=== PATIENT | female | born 1975 | race Hispanic/Latino ===

== ENCOUNTER 2020-10-04 09:35 | Inpatient (IN) | payer OTHER, SELFPAY ==
[~2020-10-04] VITALS: Ht 154.9 cm; Wt 79.3 kg
[2020-10-04 11:07] LABS: BASOPHILS % (AUTO) 0.2 % (0.0-5.0); EOSINOPHILS % (AUTO) 0.1 % (0.0-8.0); HEMATOCRIT 40.2 % (36-48); LYMPHOCYTES % (AUTO) 6.4 % (21.0-51.0); MEAN CORPUSCULAR HEMOGLOBIN 26.1 pg (27.0-33.0); MEAN CORPUSCULAR HGB CONC 31.6 g/dL (32.0-36.0); MEAN CORPUSCULAR VOLUME 82.5 fL (79-99); NEUTROPHILS % (AUTO) 87.9 % (40.0-77.0); PLATELET COUNT (AUTO) 252 K/uL (130-400); RED BLOOD CELL COUNT(AUTO) 4.87 MIL/uL (4.00-5.50); RED CELL DISTRIBUTION WIDTH 14.8 % (11.0-15.5); WHITE BLOOD COUNT (AUTO) 12.3 K/uL (4.8-10.8)
[2020-10-04 11:12] LABS: CREATININE 0.6 mg/dL (0.5-1.5); POTASSIUM 4.1 mmol/L (3.5-5.1)
[2020-10-04 11:15] LABS: APPEARANCE,URINE Clear (CLEAR); BILIRUBIN,URINE Negative (NEGATIVE); COLOR,URINE Yellow (YELLOW); GLUCOSE, URINE (UA) >=1000 mg/dL (NEGATIVE); KETONES,URINE >=160 mg/dL (NEGATIVE); LEUKOCYTE ESTERASE ,URINE Negative (NEGATIVE); NITRATE,URINE Negative (NEGATIVE); OCCULT BLOOD,URINE Nonhemolyzed Trace (NEGATIVE); PH,URINE 6.5 (5.0-8.0); PROTEIN,URINE Trace mg/dL (NEGATIVE)
[2020-10-04 11:17] LABS: ALBUMIN 2.9 g/dL (3.5-5.0); BILIRUBIN,TOTAL 0.5 mg/dL (0.2-1.0); TOTAL PROTEIN, SERUM 7.5 g/dL (6.0-8.3)
[2020-10-04 11:21] LABS: HCG,QUAL RESULT NEGATIVE (NEGATIVE)
[2020-10-04 11:35] LABS: RBC,URINE 0-1 /HPF (0-1); WBC,URINE 0-1 /HPF (0-1)
[2020-10-04 11:36] LABS: BACTERIA,URINE Rare /HPF (None Seen); SQUAMOUS EPITHELIAL CELL,UR Rare /HPF (0-2)
[2020-10-04 12:25] LABS: ABG BASE EXCESS 0.1 mmol/L (-2.0-3.0); ABG HCO3 24.2 mmol/L (21.0-28.0); ABG OXYGEN SATURATION 91.9 % (95.0-99.0); ABG PCO2 38 mmHg (32-45)
[2020-10-04] MEDS ORDERED: ALBUTEROL INHALER 90MCG/INH IH ONE (13:26)
[2020-10-04] MEDS ORDERED: CEFTRIAXONE SODIUM 1 GM ONE (13:27)
[2020-10-04] MEDS ORDERED: DEXAMETHASONE SOD PHOSPHATE 10MG/ML 1ML VIAL ONE (13:27)
[2020-10-04] MEDS ORDERED: AZITHROMYCIN 500MG+NS 250ML 250 ML IV ONE (13:27)
[2020-10-04] MEDS ORDERED: SODIUM CHLORIDE 0.9% 50 ML IV ONE (13:28)
[2020-10-04] MEDS ORDERED: POTASSIUM CHLORIDE 20 MEQ ERTAB PO PRN (14:30)
[2020-10-04] MEDS ORDERED: GUAIFENESIN-DM 200/20 MG 10 ML PO PRN (14:30)
[2020-10-04] MEDS ORDERED: GLUCAGON 1MG KIT 1 MG ML IM PRN (14:30)
[2020-10-04] MEDS ORDERED: DiphenhydrAMINE HCL 50 MG/ML VIAL IV PRN (14:30)
[2020-10-04] MEDS ORDERED: LACTATED RINGERS 1000ML 1,000 ML IV SCH (14:30)
[2020-10-04] MEDS ORDERED: POTASSIUM CHLORIDE 20MEQ/100ML 100 ML IV PRN ×2 (14:30)
[2020-10-04] MEDS ORDERED: ACETAMINOPHEN 325 MG TAB PO PRN (14:30)
[2020-10-04] MEDS ORDERED: MAG HYDROX/AL HYDROX/SIMETH ES 30 ML SUSP UDCUP PO PRN (14:30)
[2020-10-04] MEDS ORDERED: LACTULOSE 20 GM/30 ML UDCUP PO PRN (14:30)
[2020-10-04] MEDS ORDERED: ERGOCALCIFEROL (VITAMIN D2) 50,000 UNIT CAPSULE PO ONE (14:30)
[2020-10-04] MEDS ORDERED: POTASSIUM CHLORIDE 10% ELIXIR 20 MEQ/15 ML UDCUP PO PRN (14:30)
[2020-10-04] MEDS ORDERED: NITROGLYCERIN 0.4 MG SL TAB SL PRN (14:30)
[2020-10-04] MEDS ORDERED: ONDANSETRON HCL 4 MG/2 ML VIAL IV PRN (14:30)
[2020-10-04] MEDS ORDERED: DEXTROSE 50%-WATER 50 ML DISP.SYRIN IV PRN (14:30)
[2020-10-04] MEDS ORDERED: DIPHENHYDRAMINE HCL 25 MG CAPSULE PO PRN (14:30)
[2020-10-04] MEDS ORDERED: LACTATED RINGERS 1000ML 1,000 ML IV ONE (15:07)
[2020-10-04] MEDS ORDERED: ERGOCALCIFEROL (VITAMIN D2) 50,000 UNIT CAPSULE ONE (15:07)
[2020-10-04] MEDS ORDERED: ACETAMINOPHEN 325 MG TAB ONE (15:15)
[2020-10-04] MEDS ORDERED: PHARMACY COMMUNICATION**REMDESIVIR ORDER MISC SCH (15:45)
[2020-10-04] MEDS ORDERED: SODIUM CHLORIDE 0.9% 250 ML IV ONE (16:51)
[2020-10-04] MEDS ORDERED: REMDESIVIR (EUA) 520 200 MG in SODIUM CHLORIDE 0.9% 250 ML IV SCH (18:45)
[2020-10-04] MEDS ORDERED: COMPOUND IV REFRIGERATED 1 EACH IVSOLN MISC PRN (18:45)
[2020-10-04] MEDS ORDERED: ACETYLCYSTEINE 600 MG CAPSULE ONE (23:21)
[2020-10-04] MEDS ORDERED: INSULIN HUMULIN R 100 UNIT/ML 3ML ONE (23:22)
[2020-10-05] MEDS: CEFTRIAXONE SODIUM 1 GM IV SCH (04:45)
[2020-10-05] MEDS ORDERED: SODIUM CHLORIDE 0.9% 250 ML IV ONE (04:59)
[2020-10-05] MEDS: PHARMACY COMMUNICATION MISC SCH (06:00)
[2020-10-05 06:37] LABS: BASOPHILS % (AUTO) 0.1 % (0.0-5.0); HEMATOCRIT 35.5 % (36-48); LYMPHOCYTES % (AUTO) 6.7 % (21.0-51.0); MEAN CORPUSCULAR HEMOGLOBIN 26.3 pg (27.0-33.0); MEAN CORPUSCULAR HGB CONC 31.8 g/dL (32.0-36.0); MEAN CORPUSCULAR VOLUME 82.6 fL (79-99); MONOCYTES % (AUTO) 2.9 % (3.0-13.0); NEUTROPHILS % (AUTO) 89.4 % (40.0-77.0); PLATELET COUNT (AUTO) 269 K/uL (130-400); RED CELL DISTRIBUTION WIDTH 15.2 % (11.0-15.5); WHITE BLOOD COUNT (AUTO) 11.8 K/uL (4.8-10.8)
[2020-10-05] MEDS ORDERED: ASCORBIC ACID 500 MG TAB ONE (07:33)
[2020-10-05] MEDS ORDERED: ENOXAPARIN SODIUM 40 MG/0.4 ML SYRINGE SQ ONE (07:34)
[2020-10-05] MEDS ORDERED: ZINC SULFATE 220 CAPSULE ONE (07:34)
[2020-10-05] MEDS ORDERED: ACETYLCYSTEINE 600 MG CAPSULE ONE (07:34)
[2020-10-05 07:38] LABS: ALANINE AMINOTRANSFERASE 18 U/L (12-78); ALBUMIN 2.6 g/dL (3.5-5.0); ASPARTATE AMINOTRANSFERASE 12 U/L (10-37); BILIRUBIN,TOTAL 0.3 mg/dL (0.2-1.0); CARBON DIOXIDE 16 mmol/L (21-32); CHLORIDE 104 mmol/L (101-111); CREATININE 0.6 mg/dL (0.5-1.5); GLOMERULAR FILTR. RATE CALC 115 mL/min (>60); GLUCOSE,RANDOM 305 mg/dL (70-105); LACTATE DEHYDROGENASE 143 U/L (81-234); POTASSIUM 4.2 mmol/L (3.5-5.1); SODIUM SERUM 140 mmol/L (136-145); TOTAL PROTEIN, SERUM 7.3 g/dL (6.0-8.3); UREA NITROGEN, BLOOD 15 mg/dL (7-18)
[2020-10-05] MEDS ORDERED: INSULIN HUMULIN R 100 UNIT/ML 3ML ONE ×2 (08:28→12:37)
[2020-10-05] MEDS ORDERED: POTASSIUM CHLORIDE 10% ELIXIR 20 MEQ/15 ML UDCUP ONE (09:48)
[2020-10-05] MEDS ORDERED: POTASSIUM CHLORIDE 20MEQ/100ML 100 ML IV ONE (09:48)
[2020-10-05] MEDS ORDERED: CEFTRIAXONE SODIUM 1 GM ONE (14:28)
[2020-10-05] MEDS ORDERED: DEXAMETHASONE SOD PHOSPHATE 10MG/ML 1ML VIAL ONE (14:28)
[2020-10-05] MEDS ORDERED: SODIUM CHLORIDE 0.9% 50 ML IV ONE (14:29)
[2020-10-05] MEDS ORDERED: INSULIN GLARGINE 100 UNITS/ML 10 ML VIAL SQ SCH (21:00)
[2020-10-06] MEDS: REMDESIVIR (EUA) 520 100 MG in SODIUM CHLORIDE 0.9% 250 ML IV SCH ×2 (04:45→17:26)
[2020-10-06] MEDS: INSULIN HUMULIN R 100 UNIT/ML 3ML SQ SCH ×9 (04:45→20:48)
[2020-10-06] MEDS: ACETYLCYSTEINE 600 MG CAPSULE PO SCH ×3 (04:45→20:45)
[2020-10-06] MEDS: ASCORBIC ACID 500 MG TAB PO SCH ×2 (04:45→08:03)
[2020-10-06] MEDS: ZINC SULFATE 220 CAPSULE PO SCH ×2 (04:45→08:04)
[2020-10-06] MEDS: ENOXAPARIN SODIUM 40 MG/0.4 ML SYRINGE SQ SCH ×2 (04:45→08:06)
[2020-10-06] MEDS: INSULIN GLARGINE 100 UNITS/ML 10 ML VIAL SQ SCH (04:45)
[2020-10-06] MEDS: DEXAMETHASONE SOD PHOSPHATE 4 MG/ML 1ML VIAL IVP SCH ×2 (04:45→14:52)
[2020-10-06 05:10] VITALS: BP 134/63
[2020-10-06] MEDS: PHARMACY COMMUNICATION MISC SCH (06:00)
[2020-10-06 07:00] VITALS: BP 126/68
[2020-10-06 08:06] LABS: HEMOGLOBIN A1C 10.6 % (4.0-6.0)
[2020-10-06 08:07] LABS: ALBUMIN 2.5 g/dL (3.5-5.0); BILIRUBIN,TOTAL 0.3 mg/dL (0.2-1.0); CREATININE 0.6 mg/dL (0.5-1.5); POTASSIUM 4.4 mmol/L (3.5-5.1)
[2020-10-06 08:15] LABS: CRP QUANTITATIVE 197.2 mg/L (0.00-9.0)
[2020-10-06 11:00] VITALS: BP 111/61
[2020-10-06 12:40] LABS: BASOPHILS % (AUTO) 0.2 % (0.0-5.0); HEMATOCRIT 35.9 % (36-48); LYMPHOCYTES % (AUTO) 9.9 % (21.0-51.0); MEAN CORPUSCULAR HGB CONC 31.5 g/dL (32.0-36.0); MEAN CORPUSCULAR VOLUME 82.7 fL (79-99); MONOCYTES % (AUTO) 4.4 % (3.0-13.0); NEUTROPHILS % (AUTO) 84.3 % (40.0-77.0); PLATELET COUNT (AUTO) 321 K/uL (130-400); RED BLOOD CELL COUNT(AUTO) 4.34 MIL/uL (4.00-5.50); RED CELL DISTRIBUTION WIDTH 15.1 % (11.0-15.5); WHITE BLOOD COUNT (AUTO) 9.3 K/uL (4.8-10.8)
[2020-10-06] MEDS: CEFTRIAXONE SODIUM 1 GM IV SCH (14:52)
[2020-10-06 16:00] VITALS: BP 138/73
[2020-10-06] MEDS: ACETAMINOPHEN 325 MG TAB PO PRN (19:55)
[2020-10-06 20:00] VITALS: BP 118/62
[2020-10-06] MEDS ORDERED: INSULIN GLARGINE 100 UNITS/ML 10 ML VIAL SQ SCH (21:00)
[2020-10-07] VITALS: BP 117/74
[2020-10-07 04:00] VITALS: BP 132/71
[2020-10-07 04:32] LABS: BASOPHILS % (AUTO) 0.3 % (0.0-5.0); HEMATOCRIT 36.5 % (36-48); MEAN CORPUSCULAR HEMOGLOBIN 25.8 pg (27.0-33.0); MEAN CORPUSCULAR HGB CONC 31.8 g/dL (32.0-36.0); MEAN CORPUSCULAR VOLUME 81.1 fL (79-99); NEUTROPHILS % (AUTO) 79.4 % (40.0-77.0); NUCLEATED RED BLOOD CELLS 0.2 % (0.0-0.19); PLATELET COUNT (AUTO) 335 K/uL (130-400); RED CELL DISTRIBUTION WIDTH 14.7 % (11.0-15.5); WHITE BLOOD COUNT (AUTO) 8.6 K/uL (4.8-10.8)
[2020-10-07 04:49] LABS: ALBUMIN 2.6 g/dL (3.5-5.0); BILIRUBIN,TOTAL 0.2 mg/dL (0.2-1.0); CREATININE 0.6 mg/dL (0.5-1.5); CRP QUANTITATIVE 100.7 mg/L (0.00-9.0); POTASSIUM 4.1 mmol/L (3.5-5.1); TOTAL PROTEIN, SERUM 7.1 g/dL (6.0-8.3)
[2020-10-07] MEDS: PHARMACY COMMUNICATION MISC SCH (06:00)
[2020-10-07] MEDS: INSULIN HUMULIN R 100 UNIT/ML 3ML SQ SCH ×4 (06:41→20:45)
[2020-10-07] MEDS: ZINC SULFATE 220 CAPSULE PO SCH (08:35)
[2020-10-07] MEDS: ASCORBIC ACID 500 MG TAB PO SCH (08:35)
[2020-10-07] MEDS: ACETYLCYSTEINE 600 MG CAPSULE PO SCH ×2 (08:35→20:41)
[2020-10-07] MEDS: ENOXAPARIN SODIUM 40 MG/0.4 ML SYRINGE SQ SCH (08:36)
[2020-10-07 08:44] VITALS: BP 140/79
[2020-10-07] MEDS: INSULIN LISPRO 100 UNIT/ML 3ML SQ SCH ×2 (11:31→16:15)
[2020-10-07 12:28] VITALS: BP 121/67
[2020-10-07] MEDS: CEFTRIAXONE SODIUM 1 GM IV SCH (15:57)
[2020-10-07] MEDS: DEXAMETHASONE SOD PHOSPHATE 4 MG/ML 1ML VIAL IVP SCH (15:58)
[2020-10-07] MEDS: REMDESIVIR (EUA) 520 100 MG in SODIUM CHLORIDE 0.9% 250 ML IV SCH (17:05)
[2020-10-07 17:09] VITALS: BP 124/62
[2020-10-07 20:00] VITALS: BP 133/67
[2020-10-07] MEDS ORDERED: INSULIN GLARGINE 100 UNITS/ML 10 ML VIAL SQ SCH (21:00)
[2020-10-07] MEDS: ACETAMINOPHEN 325 MG TAB PO PRN (21:03)
[2020-10-08] VITALS (7 sets, daily range): BP systolic 112–132; BP diastolic 69–77
[2020-10-08] MEDS: PHARMACY COMMUNICATION MISC SCH (06:00)
[2020-10-08] MEDS: INSULIN HUMULIN R 100 UNIT/ML 3ML SQ SCH ×4 (06:43→20:37)
[2020-10-08] MEDS: INSULIN LISPRO 100 UNIT/ML 3ML SQ SCH ×3 (06:45→16:12)
[2020-10-08] MEDS: ZINC SULFATE 220 CAPSULE PO SCH (08:42)
[2020-10-08] MEDS: ACETYLCYSTEINE 600 MG CAPSULE PO SCH (08:42)
[2020-10-08] MEDS: ASCORBIC ACID 500 MG TAB PO SCH (08:42)
[2020-10-08] MEDS: ENOXAPARIN SODIUM 40 MG/0.4 ML SYRINGE SQ SCH (08:44)
[2020-10-08 09:28] LABS: ALBUMIN 2.6 g/dL (3.5-5.0); BILIRUBIN,DIRECT 0.1 mg/dL (0.0-0.3); BILIRUBIN,TOTAL 0.2 mg/dL (0.2-1.0); TOTAL PROTEIN, SERUM 6.8 g/dL (6.0-8.3)
[2020-10-08] MEDS: DEXAMETHASONE SOD PHOSPHATE 4 MG/ML 1ML VIAL IVP SCH (15:21)
[2020-10-08] MEDS: CEFTRIAXONE SODIUM 1 GM IV SCH (15:21)
[2020-10-08] MEDS: REMDESIVIR (EUA) 520 100 MG in SODIUM CHLORIDE 0.9% 250 ML IV SCH (15:55)
[2020-10-08] MEDS ORDERED: INSULIN GLARGINE 100 UNITS/ML 10 ML VIAL SQ SCH (21:00)
[2020-10-09 00:20] VITALS: BP 121/71
[2020-10-09 04:00] VITALS: BP 126/78
[2020-10-09 05:34] LABS: HEMATOCRIT 37.8 % (36-48); MEAN CORPUSCULAR HEMOGLOBIN 25.6 pg (27.0-33.0); MEAN CORPUSCULAR VOLUME 80.1 fL (79-99); NUCLEATED RED BLOOD CELLS 0.3 % (0.0-0.19); RED BLOOD CELL COUNT(AUTO) 4.72 MIL/uL (4.00-5.50); RED CELL DISTRIBUTION WIDTH 14.4 % (11.0-15.5); WHITE BLOOD COUNT (AUTO) 11.4 K/uL (4.8-10.8)
[2020-10-09 05:57] LABS: CREATININE 0.6 mg/dL (0.5-1.5); CRP QUANTITATIVE 26.1 mg/L (0.00-9.0); POTASSIUM 3.7 mmol/L (3.5-5.1)
[2020-10-09] MEDS: INSULIN HUMULIN R 100 UNIT/ML 3ML SQ SCH ×2 (05:58→12:00)
[2020-10-09] MEDS: PHARMACY COMMUNICATION MISC SCH (06:00)
[2020-10-09] MEDS: INSULIN LISPRO 100 UNIT/ML 3ML SQ SCH ×2 (07:55→11:59)
[2020-10-09 08:00] VITALS: BP 112/72
[2020-10-09] MEDS: ZINC SULFATE 220 CAPSULE PO SCH (08:07)
[2020-10-09] MEDS: ENOXAPARIN SODIUM 40 MG/0.4 ML SYRINGE SQ SCH (08:08)
[2020-10-09] MEDS: ASCORBIC ACID 500 MG TAB PO SCH (08:08)
[2020-10-09 12:00] VITALS: BP 113/75
[2020-10-09] MEDS ORDERED: LOSA25TA2 PO (13:43)
[2020-10-09] MEDS ORDERED: METF-444 PO (13:43)
[2020-10-09] MEDS ORDERED: INSU100I26 SQ (13:43)
[2020-10-09] MEDS ORDERED: LINA5TAB PO (13:43)
[2020-10-09] MEDS: DEXAMETHASONE SOD PHOSPHATE 4 MG/ML 1ML VIAL IVP SCH (14:04)
[2020-10-09] MEDS: CEFTRIAXONE SODIUM 1 GM IV SCH (14:05)
[2020-10-09] MEDS ORDERED: DEXA6TAB PO (14:23)
[2020-10-09] MEDS ORDERED: ASPI-1197 PO (14:23)
== END 2020-10-09 15:32 | disposition home or self-care (01) | DRG 177 ==
LOC: EDH 09:35 → EDHIP 09:36 → 4AH 10-06 04:36
PROVIDERS: ADMIT Family Medicine; ATTEND Family Medicine
PROC: XW13325 Transfusion of Convalescent Plasma (Nonautologous) into Peripheral Vein, Percutaneous Approach, New Technology Group 5 (ICD-10-PCS; principal; 2020-10-04)
DX: U07.1 COVID-19 (principal); J96.01 Acute respiratory failure with hypoxia; J12.89 Other viral pneumonia; I10 Essential (primary) hypertension; E66.9 Obesity, unspecified; E89.0 Postprocedural hypothyroidism; Z68.33 Body mass index [BMI] 33.0-33.9, adult; Z79.4 Long term (current) use of insulin
CPT/HCPCS: 36415; 36600; 71045; 71250; 80048; 80053; 80076; 81001; 81025; 82550; 82728; 82803; 82948; 83036; 83605; 83615; 84145; 85025; 85027; 85378; 86140; 86850; 86900; 86901; 86927; 87040; 87426; 87804; 94760; G0378; J0456; J0696; J1100; J1650; J1815; J3480; J7050; J7120